=== PATIENT | female | born 1990 | race Two or more races ===

== ENCOUNTER 2016-11-05 09:40 | Emergency (ER) | payer OTHER ==
[~2016-11-05] VITALS: Ht 162.6 cm; Wt 40.8 kg
--- NOTE | ~2016-11-05 | CT2 ---
[facility] A Service of [facility] RADIOLOGY TEXT RESULTS PATIENT: MORA FERRO LOCATION: [facility] : [birth year] UNIT #: [id number] AGE: [address]: Brian Hines MD SEX: F ORDER DR: [id number] [facility] [place], [place] [address] [id number] MR#: [id number] Acc #: [id number] NAME: MORA FERRO : 1990 SEX: F STUDY DATE/TIME: 11/05/2016 12:16 UNIT: [facility] ROOM: STUDY DESCRIPTION: CT Abd and Pelv W Cont Attending Physician: Brian Hines M.D. Ordering Physician: Brian Hines M.D. Primary Care Physician: Primary Care Physician No MEDICAL IMAGING REPORT This report is preliminary unless electronic signature is present EXAM CT abdomen and pelvis with contrast 11/05/2016 1216 hours HISTORY 26-year-old woman with vomiting, nausea and diarrhea today, epigastric pain and right lower quadrant abdominal pain for 1 week. COMPARISON None. TECHNIQUE Dynamic helical CT images were obtained from the lung bases through the pubic symphysis with intravenous contrast only. Sagittal and coronal reconstructions were performed. Repeat series through the upper abdomen was performed to include all of the liver. Contrast was Isovue-370, 100 mL. Total exam DLP 671 mGy-cm. This CT exam was performed with one or more of the following radiation dose reduction techniques: Automatic exposure control, adjustment of mA and/or kV according to patient size, and iterative reconstruction. Patient complained of chest pain following contrast administration. Breathing and swallowing was normal. No visible hives or itchiness. Patient was taken to the emergency room for evaluation following this exam. FINDINGS Images through the lung bases are clear. There are no effusions. The distal esophagus is normal. Images through the abdomen demonstrate a normal appearance to the liver, spleen, pancreas. There is motion artifact particularly on the images through the upper abdomen. The gallbladder is not thickened and no gallstones are seen. The pancreas and pancreatic duct are normal. The [facility] A Service of [facility] RADIOLOGY TEXT RESULTS PATIENT: MOR[facility]ERR[id number] [birth year] UNIT #: [id number] AGE: [address]: Brian Hines MD SEX: F ORDER DR: adrenal glands are normal. The kidneys enhance normally. The abdominal aorta is normal in caliber. There is no retroperitoneal adenopathy or ascites. The stomach is contracted and unopacified but appears normal. There is no small bowel distension or small bowel wall thickening. The appendix is normal. The colon demonstrates increased stool throughout. No colonic wall thickening is seen. CT pelvis demonstrates a globular, somewhat prominent uterus without discrete mass or endometrial thickening. There is no adnexal mass or pelvic free fluid. IMPRESSION 1. Exam is limited by the lack of oral contrast and the presence of motion artifact. 2. The kidneys, ureters and bladder appear normal. No stones are seen. 3. The gallbladder is contracted. No stones or wall thickening. No bile duct dilatation. 4. The terminal ileum and cecum and appendix are normal. 5. There is generally an increased amount of stool throughout the colon, which could be symptomatic. 6. Mildly prominent uterine size with slightly globular contour to the uterus without discrete mass. There is no adnexal mass or free fluid. Dictated by... Chely Lott M.D. THIS IS AN ELECTRONICALLY VERIFIED REPORT Chely Lott M.D. at 11/06/2016 5:21 PM RYAN/reji TD: 11/05/2016 15:56 JOB #: [id number] MEDICAL IMAGING REPORT Page 1 of 1 COPY
[2016-11-05 10:41] LABS: BASOPHIL% 1.2 % (0-2.5); DIFF IND YES; EOSINOPHIL# 0.1 X10e3 (0-0.7); EOSINOPHIL% 2.5 % (0.0-7.0); HEMATOCRIT 41.3 % (35.0-45.0); HEMOGLOBIN 13.6 gm/dL (12.0-16.0); LYMPHOCYTE# 1.9 X10e3 (1.0-3.5); LYMPHOCYTE% 60.3 % (17.0-45.0); MEAN CELL VOLUME 83.8 FL (83-96); MEAN CORPUSCULAR HEMOGLOBIN 27.7 PG (28-34); MEAN PLATELET VOLUME 8.5 FL (6.5-11.5); MONOCYTE# 0.3 X10e3 (0-1.0); MONOCYTE% 8.7 % (3.0-12.0); NEUTROPHIL# 0.9 X10e3 (1.5-7.1); NEUTROPHIL% 27.3 % (40-75); PLATELET COUNT 299 X10e3 (140-420); RED BLOOD COUNT 4.93 X10e (3.90-5.30); RED CELL DISTRIBUTION WIDTH 12.8 % (11.0-15.5); WHITE BLOOD COUNT 3.2 X10e3 (4.0-10.5)
[2016-11-05 10:46] LABS: URINE SOURCE CLEAN CATCH
[2016-11-05 10:59] LABS: URINE APPEARANCE CLEAR; URINE BILIRUBIN NEG (NEG); URINE BLOOD NEG (NEG); URINE COLOR YELLOW; URINE GLUCOSE NEG (NEG); URINE KETONE NEG (NEG); URINE LEUKOCYTE ESTERASE NEG (NEG); URINE NITRATE NEG (NEG); URINE PROTEIN NEG (NEG); URINE SPECIFIC GRAVITY 1.021 (1.003-1.035); URINE UROBILINOGEN 0.2 MG/DL (NEG)
[2016-11-05 11:08] LABS: PLATELET ESTIMATE NORMAL (NORMAL)
[2016-11-05 11:13] LABS: ALBUMIN SERUM 4.6 g/dL (3.5-5.0); BILIRUBIN, DIRECT 0.1 mg/dL (0.0-0.2); BILIRUBIN,INDIRECT 0.7 mg/dL (0.0-0.9); BILIRUBIN,TOTAL 0.8 mg/dL (0.2-2.0); BUN/CREATININE RATIO 18.33; CALCIUM SERUM 9.3 mg/dL (8.4-10.2); CREATININE SERUM 0.6 mg/dL (0.6-1.4); GLOM FILT RATE Estimated 125.8 mL/min (>60); POTASSIUM 3.6 mmol/L (3.5-5.1); PROTEIN TOTAL SERUM 8.3 g/dL (6.0-8.3)
== END 2016-11-05 14:34 | disposition home or self-care (01) ==
LOC: CED 09:40
PROVIDERS: Emergency Medicine
DX: E86.0 Dehydration (principal); R06.89 Other abnormalities of breathing; K59.00 Constipation, unspecified
CPT/HCPCS: 36415; 74177; 80048; 80076; 81003; 83690; 84703; 85025; 96361; 96374; 96375; 99284; J2060; J2405; Q9967